=== PATIENT | female | born 2000 | race Caucasian/White ===

== ENCOUNTER → 2021-12-10 | Outpatient (CLI) | payer OTHER ==
[~2021-12-10] MED LIST: BENTYL 20MG TAB20 MG PO; PRENATAL VITAM1 EAC8 PO; REGLAN10 MG PO
== END ==
LOC: GENOP 14:39
DX: O99.891 Other specified diseases and conditions complicating pregnancy (principal); M54.50 Low back pain, unspecified; N89.8 Other specified noninflammatory disorders of vagina; Z3A.22 22 weeks gestation of pregnancy
CPT/HCPCS: 59025

== ENCOUNTER 2022-04-04 14:02 | Outpatient (CLI) | payer OTHER ==
[2022-04-04 15:15] LABS: HEMOGLOBIN 11.1 gm/dl (12.3-15.3); RED BLOOD COUNT 4.43 M/UL (4.00-5.10); WHITE BLOOD COUNT 10.7 K/UL (4.5-11.0)
== END 2022-04-04 15:22 | disposition home or self-care (01) ==
LOC: GENOP 14:02
PROVIDERS: Obstetrics & Gynecology
DX: Z01.812 Encounter for preprocedural laboratory examination (principal)
CPT/HCPCS: 81001; 85025